=== PATIENT | male | born 1985 | race Caucasian/White ===

== ENCOUNTER 2017-10-30 14:39 | Outpatient (REF) | payer MEDICAID, SELFPAY ==
[2017-10-30 21:38] LABS: TSH 0.94 uIU/mL (0.358-3.74)
[2017-10-31 09:46] LABS: Hemoglobin A1C 5.6 % (4.5-6.2)
== END 2017-10-30 14:59 ==
LOC: NCHCN 14:39
PROVIDERS: PCP Nurse Practitioner Family; Visit Provider Registered Nurse
DX: E04.9 Nontoxic goiter, unspecified (principal); Z83.3 Family history of diabetes mellitus
CPT/HCPCS: 83036; 84443

== ENCOUNTER 2022-12-05 16:51 | Outpatient (REF) | payer MEDICAID, SELFPAY ==
[2022-12-05 21:21] LABS: HCT 44.8 % (40.0-50.0); HGB 15.2 g/dL (13.5-17.5); MCH 28.6 pg (27.0-33.0); MCHC 33.9 % (32.0-36.0); MCV 84 fL (80-95); MPV 11.7 fL (8.0-11.0); Platelet Count 201 10^3/uL (130-400); RBC 5.32 10^6/uL (4.36-5.78); RDW 13.1 % (11.8-14.1); RDW-SD 40.2 fL; WBC 5.22 10^3/uL (4.4-10.8)
[2022-12-05 21:41] LABS: ALT 42 U/L (16-63); AST 23 U/L (15-37); Alkaline Phosphatase 58 U/L (46-116); Anion Gap 9.5 mmol/L (3-11); BUN 8 mg/dL (7-18); Bilirubin, Total 0.8 mg/dL (0.2-1.0); CO2 26.5 mmol/L (21.0-32.0); CREATININE 1.1 mg/dL (0.70-1.30); Calcium 9.2 mg/dL (8.5-10.1); Calculated LDL 155 mg/dL (<100); Chloride 107 mmol/L (98-107); Cholesterol 230 mg/dL (<200); Estimated GFR 89.22 (mL/min/1.73m2); Glucose 109 mg/dL (74-106); HDL Cholesterol 51 mg/dL (40-60); Sodium 143 mmol/L (136-145); TSH 1.11 uIU/mL (0.36-3.74); Total Protein 7.5 g/dL (6.4-8.2); Triglyceride 122 mg/dL (<150)
== END 2022-12-05 16:52 | disposition home or self-care (01) ==
LOC: NCHCN 16:51
PROVIDERS: PCP Nurse Practitioner Family; Visit Provider Family Medicine
DX: E04.9 Nontoxic goiter, unspecified (principal); Z13.0 Encounter for screening for diseases of the blood and blood-forming organs and certain disorders involving the immune mechanism
CPT/HCPCS: 80053; 80061; 85027; 83874; 84443